=== PATIENT | male | born 1950 | race Caucasian/White ===

== ENCOUNTER → 2016-09-09 | Day surgery (SDC) | payer MEDICARE, OTHER ==
[~2016-09-09] VITALS: Ht 177.8 cm; Wt 111.1 kg
[2016-09-09 09:48] LABS: HCT 45.6 % (42.0-52.0); HGB 15.9 g/dl (13.2-18.0); MCH 32.6 pg (25.0-31.0); MCHC 34.9 g/dL (32.0-36.0); MCV 93.4 fL (78.0-100.0); MPV 9.4 fL (6.0-9.5); RBC 4.88 M/uL (4.70-6.00); RDW 13.7 % (11.5-14.0); WBC 5.8 K/uL (4.0-10.5)
[2016-09-09 10:11] LABS: ALBUMIN 3.9 g/dL (3.4-4.8); BILIRUBIN - TOTAL 0.6 mg/dL (0.1-1.0); CREATININE 0.8 mg/dL (0.7-1.2); GLOBULIN (CALCULATION) 2.8 g/dL (2.2-4.2); POTASSIUM 4.3 mmol/L (3.5-5.1); TOTAL PROTEIN 6.7 g/dL (6.4-8.3)
== END | disposition home or self-care (01) ==
LOC: FAS 09:29
PROVIDERS: Surgery
DX: K52.9 Noninfective gastroenteritis and colitis, unspecified (principal); K22.2 Esophageal obstruction; K29.70 Gastritis, unspecified, without bleeding; I10 Essential (primary) hypertension; M19.90 Unspecified osteoarthritis, unspecified site; F17.210 Nicotine dependence, cigarettes, uncomplicated; J44.9 Chronic obstructive pulmonary disease, unspecified; G47.30 Sleep apnea, unspecified; Z88.8 Allergy status to other drugs, medicaments and biological substances; Z79.899 Other long term (current) drug therapy; Z99.89 Dependence on other enabling machines and devices
CPT/HCPCS: 36415; 80053; 88305; J2405; J2704